=== PATIENT | male | born 1975 | race African-American/Black ===

== ENCOUNTER 2016-09-07 01:49 | Emergency (ER) | payer MEDICAID ==
[~2016-09-07] VITALS: Ht 175.3 cm; Wt 80.0 kg
[2016-09-07] MEDS ORDERED: MORPHINE SULFATE 2 MG/ML CPJ (NOT FOR IM USE) IV ONE (03:00)
[2016-09-07] MEDS ORDERED: METOCLOPRAMIDE HCL 10MG/2ML VIAL IV ONE (03:00)
[2016-09-07] MEDS ORDERED: DIPHENHYDRAMINE 50MG/ML VIAL IV ONE (03:00)
[2016-09-07 03:16] LABS: BASOPHILS % 1.1 % (0.0-2.0); EOSINOPHILS % 4.2 % (0.0-5.0); HEMATOCRIT. 42.9 % (42.0-52.0); HEMOGLOBIN. 14.7 g/dL (14.0-18.0); LYMPHOCYTES % 37.6 % (20.0-50.0); MEAN CORPUSCULAR HEMOGLOBIN 31.8 pg (28.0-32.0); MEAN CORPUSCULAR VOLUME 92.6 fL (80.0-94.0); MEAN PLATELET VOLUME 7.7 fl (7.4-10.4); NEUTROPHILS % 47.1 % (40.0-76.0); PLATELET 194 x1000/uL (130-400); RED BLOOD CELL COUNT 4.64 mill/uL (4.7-6.1)
[2016-09-07 03:30] LABS: CARBON DIOXIDE 28 mEq/L (21-32); CHLORIDE 103 mEq/L (98-107)
[2016-09-07] MEDS ORDERED: DIPHENHYDRAMINE 50MG/ML VIAL IM ONE (03:30)
[2016-09-07] MEDS ORDERED: METOCLOPRAMIDE HCL 10MG/2ML VIAL IM ONE (03:30)
[2016-09-07] MEDS ORDERED: ACETAMINOPHEN WITH CODEINE 300/30MG TABLET PO ONE (03:30)
[2016-09-07 08:51] VITALS: BP 118/73
== END 2016-09-07 08:52 | disposition home or self-care (01) ==
LOC: ER 01:50
DX: R51 Headache (principal); F17.210 Nicotine dependence, cigarettes, uncomplicated; Z87.828 Personal history of other (healed) physical injury and trauma
CPT/HCPCS: 36415; 80053; 85025; 96372; 99284; J1200; J2765; Z7610

== ENCOUNTER 2024-09-12 01:37 | Emergency (ER) | payer MEDICAID, OTHER ==
[~2024-09-12] VITALS: Ht 175.3 cm; Wt 88.0 kg
[2024-09-12 02:00] VITALS: TEMP 36.9; O2SAT 100
[2024-09-12 04:09] VITALS: BP 136/87; PULSE 64; RESP 14; O2SAT 100
== END 2024-09-12 04:10 ==
LOC: ER 02:01
DX: S80.212A Abrasion, left knee, initial encounter (principal); X58.XXXA Exposure to other specified factors, initial encounter; Y93.89 Activity, other specified; Y92.89 Other specified places as the place of occurrence of the external cause; Y99.8 Other external cause status
CPT/HCPCS: 99283